=== PATIENT | male | born 1995 | race Caucasian/White ===

== ENCOUNTER 2016-07-06 10:24 | Emergency (ER) | payer SELFPAY ==
[~2016-07-06] VITALS: Ht 180.3 cm; Wt 101.0 kg
[2016-07-06 10:44] VITALS: BP 129/84
[2016-07-06] MEDS ORDERED: LORazepam 1MG TABLET ONE (11:24)
[2016-07-06] MEDS ORDERED: PLEASE ENTER HEIGHT AND WEIGHT MC SCH (11:30)
[2016-07-06] MEDS ORDERED: PLEASE ENTER ALLERGIES MC SCH ×2 (11:30)
[2016-07-06] MEDS ORDERED: LORazepam 1MG TABLET PO ONE (11:30)
== END 2016-07-06 12:46 | disposition home or self-care (01) ==
LOC: ED 12:40
DX: F41.1 Generalized anxiety disorder (principal); F43.9 Reaction to severe stress, unspecified; F43.10 Post-traumatic stress disorder, unspecified; F17.210 Nicotine dependence, cigarettes, uncomplicated
CPT/HCPCS: 99284

== ENCOUNTER 2016-09-06 07:36 | Observation (INO) | payer MEDICAID ==
[~2016-09-06] VITALS: Ht 177.8 cm; Wt 103.7 kg
[2016-09-06 08:35] LABS: BLOOD UREA NITROGEN 13 mg/dL (7-18)
[2016-09-06 08:37] LABS: ACETAMINOPHEN < 2 mcg/mL (10-30)
[2016-09-06 14:13] LABS: DAU SCREEN DISCLAIMER
[2016-09-06] MEDS ORDERED: LORazepam 2 MG/ML, 1ML IM PRN ×2 (14:30)
[2016-09-06] MEDS ORDERED: LORazepam 1MG TABLET PO PRN (14:30)
[2016-09-06] MEDS ORDERED: TOPI50TA35 PO (17:49)
[2016-09-06 18:37] VITALS: BP 120/77
[2016-09-06 19:36] VITALS: BP 126/74
== END 2016-09-07 03:25 ==
LOC: ED 09:57 → EDIP 09:58 → ED 10:10 → 3E 18:33
PROVIDERS: ADMIT Internal Medicine; ATTEND Internal Medicine
DX: R45.851 Suicidal ideations (principal); F43.10 Post-traumatic stress disorder, unspecified; F32.9 Major depressive disorder, single episode, unspecified; F12.90 Cannabis use, unspecified, uncomplicated; Z91.5 Personal history of self-harm; Z72.0 Tobacco use
CPT/HCPCS: 36415; 80048; 80307; 80329; 82040; 85025; 99285; G0378; G0480